=== PATIENT | female | born 1950 | race Caucasian/White ===

== ENCOUNTER 2016-10-09 06:00 | Emergency (ER) | payer BC ==
[~2016-10-09] VITALS: Ht 162.6 cm; Wt 106.3 kg
[~2016-10-09 06:00] MED LIST: DILTZAC; HYDROCHLOROTHIA25 MG; LOSARTAN POTASS50 MG PO; TRAMADOL HCL50 MG
[2016-10-09 06:56] LABS: HEMATOCRIT 29.1 % (36.0-46.0); MCH 29.2 PG (29.0-34.0); MCV 85.8 FL (83-99); MEAN PLAT.VOLUME 10.4 uM^3 (9.5-12.4); PLATELET COUNT 268 K/uL (156-360); RBC DIS.WIDTH-CV 13.4 % (11.8-14.6); RBC DIS.WIDTH-SD 41.9 % (39-53); RED BLOOD COUNT 3.39 M/uL (3.80-5.20)
[2016-10-09 07:43] LABS: ANION GAP 11 MEQ/L (2-14); CHLORIDE 97 MEQ/L (99-109); SAMPLE HEMOLYSIS CHECK 0; SAMPLE ICTERIC CHECK 0; SAMPLE LIPEMIA CHECK 0; SODIUM 136 MEQ/L (136-147)
[2016-10-09 07:49] LABS: GFR ESTIMATE (CALCULATED) > 59 mL/min/; GLUCOSE 121 mg/dL (70-99); UREA NITROGEN (BUN) 11 mg/dL (9-23)
[2016-10-09 12:47] LABS: BASOPHIL COUNT 0.1 K/uL (0-0.1); EOSINOPHIL (%) 3.2 % (0-5); EOSINOPHIL COUNT 0.4 K/uL (0-0.3); IMMATURE GRANULOCYTE (%) 1.7 % (0.0-0.7); IMMATURE GRANULOCYTE COUNT 0.2 K/uL; LYMPHOCYTE COUNT 1.6 K/uL (1.0-2.8); MONOCYTE (%) 7.3 % (3-12); MONOCYTE COUNT 0.8 K/uL (0-0.8); NEUTROPHIL (%) 72.6 % (45-76)
[2016-10-09 13:04] VITALS: BP 141/78
[2016-10-09 14:15] LABS: HEMATOLOGY COMMENT 1 SMEAR COMPATIBLE; PLAT.SUFFICIENCY ADEQUATE
== END 2016-10-09 12:55 | disposition home or self-care (01) ==
LOC: EME 06:00
PROVIDERS: Emergency Medicine
DX: G89.18 Other acute postprocedural pain (principal); M54.5 Low back pain; I10 Essential (primary) hypertension; G89.29 Other chronic pain
CPT/HCPCS: 72100; 80048; 85025; 99281; 99285; J1170; J1885; J3010; J3360; J7050